=== PATIENT | male | born 1960 | race Native Hawaiian/Other Pacific Islander ===

== ENCOUNTER 2020-12-29 20:28 | Emergency (ER) | payer BC ==
[~2020-12-29] VITALS: Ht 167.6 cm; Wt 68.0 kg
[2020-12-29 20:55] LABS: PLATELET COUNT 259 K/uL (142-355)
[2020-12-29 21:33] LABS: PARTIAL THROMBOPLASTIN TIME 24.3 SECONDS (24.5-33.6)
[2020-12-29 22:30] VITALS: BP 115/70; TEMP 98.8
== END 2020-12-29 22:30 | disposition home or self-care (01) ==
LOC: ED 20:28
PROVIDERS: Hospitalist
DX: N13.2 Hydronephrosis with renal and ureteral calculous obstruction (principal)
CPT/HCPCS: 36415; 80053; 81000; 82150; 83690; 85027; 85610; 85730; 96360; 96365; 96375; 99284; J0696; J1885